=== PATIENT | male | born 1960 | race Caucasian/White ===

== ENCOUNTER → 2022-01-02 12:45 | Outpatient (REF) | payer BC, SELFPAY ==
--- NOTE | ~2022-01-02 | US_ITS ---
EXAMINATION: US EXTRACRANIAL CAROTID DUPLEX, BILATERAL CLINICAL INFORMATION: History of stroke. COMPARISON: None TECHNIQUE: Real-time ultrasound and Doppler techniques (integrating B-mode 2-D vascular images, Doppler spectral analysis and color-flow Doppler imaging) were utilized to interrogate the extracranial carotid arteries, the vertebral arteries and proximal subclavian arteries bilaterally. The degree of stenosis is determined by criteria similar to NASCET. FINDINGS: Right Side: 1. There is mild atherosclerotic plaque seen in the bifurcation/proximal ICA region. 2. The common carotid artery PSV proximally is 103 cm/s and distally 82 cm/s. 3. The proximal internal carotid artery velocities are 57 cm/s systolic and 16 cm/s diastolic. 4. The proximal external carotid artery PSV is 99 cm/s. 5. The vertebral artery shows antegrade flow. 6. The subclavian artery waveforms are normal. Left Side: 1. There is mild atherosclerotic plaque seen in the bifurcation/proximal ICA region. 2. The common carotid artery PSV proximally is 117 cm/s and distally 93 cm/s. 3. The proximal internal carotid artery velocities are 84 cm/s systolic and 20 cm/s diastolic. 4. The proximal external carotid artery PSV is 81 cm/s. 5. The vertebral artery shows antegrade flow. 6. The subclavian artery waveforms are normal. US/US carotid duplex BI IMPRESSION: 1. RIGHT: Minimal, non-hemodynamically significant stenosis of the proximal right internal carotid artery corresponding to a 0-49% stenosis by velocity criteria. 2. LEFT: Minimal, non-hemodynamically significant stenosis of the proximal left internal carotid artery corresponding to a 0-49% stenosis by velocity criteria.
--- NOTE | 2022-01-02 12:52 | CA_ITS ---
Transthoracic Echocardiogram Patient (Last, First, Middle): ELIZA SANTOS, Gender: Male Date of : 1960 Age: 61 Procedure Date: 01/02/2022 Procedure Type: Transthoracic Echocardiogram Location: OP Height: 172.72 cm Weight: 81.65 kg BSA: 1.95 m2 Heart Rate: bpm BP: 130 / 80 mmHg Market Gardener: RAFAEL Plaza MD: Natalya Sandoval MD Underwriting Specialist: Lorenzo Lucas MD Symptoms: I63.9 STROKE Study Quality: Fair ECG Rhythm: Sinus Conclusions: - 1. Normal LV systolic function with impaired relaxation filling pattern 2. In adequate visualization cardiac valves with normal cardiac valvular Doppler 3. Normal RV systolic pressure 4. No pericardial effusion Findings Left Ventricle Normal left ventricular size, thickness, and systolic function. The visually estimated ejection fraction is between 60-65%. Spectral Doppler is indicative of an impaired relaxation filling pattern. E/E prime ratio is <8, consistent with normal filling pressures. Evidence suggests grade I (mild) diastolic dysfunction. Right Ventricle Normal right ventricular cavity size and systolic function. Atria The left atrium is normal in size. Interatrial shunt cannot be excluded. Aortic Valve The aortic valve structure and function is likely normal. There is no aortic valve stenosis. There is no aortic valve regurgitation. Mitral Valve Likely normal mitral valve structure and function. There is trace mitral valve regurgitation. There is no mitral valve stenosis. Pulmonic Valve The pulmonic valve was not well visualized. Tricuspid Valve Likely normal tricuspid valve structure and function. There is trace tricuspid valve regurgitation. The right ventricular systolic pressure is normal. The right ventricular systolic pressure is 17 mmHg. Normal right atrial pressure. There is no evidence of pulmonary hypertension. Great Vessels All visible segments of the aorta are normal in size. The pulmonary artery was not well visualized. Venous The inferior vena cava is normal in size and collapses greater than 50% with inspiration. Pericardium/Pleural There is no evidence of pericardial effusion. Prior Study Comparison No prior study available for comparison. Recommendations, Care & Conclusions Consider a BANDAR if clinically appropriate. Recommend contrast study to evaluate intracardiac shunting. Measurements 2D Linear Measurements IVSd: 1.26 0.6-0.9/0.6-1.0 cm LVIDd: 3.32 3.9-5.3/4.2-5.9 cm LVIDd Index: 1.70 2.4-3.2/2.2-3.1 cm/m2 LVIDs: 2.16 2.0-3.6 cm LVPWd: 1.12 0.7-1.1 cm LA Diam: 2.80 2.7-3.8/3.0-4.0 cm LAIDs Index: 1.44 1.5-2.3 cm/m2 LV Mass: 154.54 67-162/88-224 g LV Mass Index: 79.25 43-95/49-115 g/m2 LVOT Diam: 2.20 3.0+(-)1.3 cm 2D Systolic Function EF 4C: 61.50 >55% EF 2C: 54.90 >55% EF BiP: 57.40 >55% Mitral Valve MV Pk E: 0.61 MV PK A: 0.56 MV Decel Time: 254.00 E/A: 1.10 E'Lateral: 9.68 E'Medial: 7.62 E/E' Med: 8.00 E/E' Lat: 6.30 PHT: 74.00 MVA PHT: 2.97 Decel [place]: 2.42 Aortic Valve AoV Pk Alonso: 1.52 AoV Mn Alonso: 1.11 AoV VTI: 0.23 AoV Pk Grad: 9.00 Aov Mn Grad: 6.00 KEVIN Cont.VTI: 3.39 LVOT LVOT Pk Alonso: 1.17 LVOT Mn Alonso: 0.77 LVOT VTI: 0.21 LVOT Pk Grad: 5.00 LVOT Mn Grad: 3.00 LVOT Diam: 2.20 LVOT Area: 3.80 Diastolic Function MV Pk E: 0.61 MV Pk A: 0.56 E/A: 1.10 E'Medial: 7.62 E/E' Med: 8.00 E' Laterial: 9.68 E/E' Lat: 6.30 Right Ventricle TAPSE (mm): 17.90 TVS' Alonso: 13.50 Tricuspid Valve TR Pk Alonso: 1.87 TR Pk Grad: 14.00 RA Press: 3.00 RVSP: 17.00 Great Vessels Aorta Sinus of Valsalva: 3.53 2.0-3.[address] [place]: 3.01 1.7-3.4 cm Ao Asc: 3.60 2.1-3.4 cm Ao Arch: 2.50 Updated in Other Vendor System with Status of Final Lorenzo Lucas MD electronically signed on 01/02/2022 4:45:23 PM with status of Final
== END ==
LOC: HO.CARD 12:45
PROVIDERS: Visit Provider Psychiatry & Neurology Neurology
DX: I63.9 Cerebral infarction, unspecified (principal)
CPT/HCPCS: 93306; 93880

== ENCOUNTER 2022-01-24 15:07 | Outpatient (REF) | payer BC, SELFPAY ==
--- NOTE | ~2022-01-24 | CT_ITS ---
EXAMINATION: CT SINUS WITHOUT CONTRAST CLINICAL INFORMATION: Chronic ethmoidal sinusitis. Headache. COMPARISON: None TECHNIQUE: 2 mm thin axial and reformatted 2 mm thin sagittal and coronal images of sinuses were obtained without contrast. This CT examination was performed using dose optimization techniques as appropriate, variously including the following: *Automated exposure control *Adjustment of mA and/or kV according to patient size (this includes techniques or standardized protocols for targeted exams where dose is matched to indication/reason for exam; i.e. extremities or head) *Use of iterative reconstruction technique DLP: 85 mGy-cm FINDINGS: FRONTAL SINUSES AND DRAINAGE PATHWAYS: Normal. MAXILLARY SINUSES AND DRAINAGE PATHWAYS: Normal. The infundibula are patent. ETHMOID SINUSES: Normal. The ethmoid roofs are symmetric, with olfactory fossa depth of 0.3 on the right and 0.3 on the left. SPHENOID SINUSES AND DRAINAGE PATHWAYS: Normal. The sphenoid ostia are patent. The carotid canals are covered by bone. NASAL CAVITY/NASOPHARYNX: The nasal cavity is clear. There is no nasal septal deviation/spurring. The nasopharynx is symmetric. ADDITIONAL RELEVANT FINDINGS: No periapical disease is seen. The TMJs articulate normally. The orbits and skull base soft tissues are unremarkable. The middle ear cavities and mastoid air cells are clear. Limited evaluation demonstrates no acute intracranial findings. CT/CT sinus wo con IMPRESSION: Unremarkable CT sinus exam. There is no evidence of sinusitis.
== END 2022-01-24 15:08 | disposition home or self-care (01) ==
LOC: HO.CT 15:07
PROVIDERS: Visit Provider Psychiatry & Neurology Neurology
DX: R51.9 Headache, unspecified (principal); J32.2 Chronic ethmoidal sinusitis
CPT/HCPCS: 70486